=== PATIENT | male | born 1995 | race Hispanic/Latino ===

== ENCOUNTER 2023-07-17 23:00 | Emergency (ER) | payer SELFPAY ==
--- NOTE | ~2023-07-17 | XR_ITS ---
EXAMINATION: XR chest 2V DATE: 07/17/2023 23:34 INDICATION: Chest pressure. Shortness of breath. TECHNIQUE: Frontal and lateral views of the chest were obtained. COMPARISON: None. FINDINGS: There is no pneumonia, pleural effusion, or pneumothorax. The heart size is normal. IMPRESSION: 1. No acute cardiopulmonary disease. Reviewed, dictated and finalized at location A.
[2023-07-17 23:04] VITALS: BP 138/87; PULSE 93; RESP 15; TEMP 36.8; O2SAT 100
--- NOTE | 2023-07-17 23:07 | ECG_ITS ---
Measurements Intervals Gleason Rate: 84 P: 58 MN: 151 QRS: 18 QRSD: 101 T: 49 QT: 337 QTc: 401 Interpretive Statements SINUS RHYTHM NORMAL ECG NO PREVIOUS ECG AVAILABLE FOR COMPARISON Electronically Signed On 07-18-2023 6:33:29 CDT by Polo Mayer D.O.
[2023-07-17 23:21] VITALS: BP 134/94; PULSE 81; RESP 19; TEMP 36.4; O2SAT 99
[2023-07-17 23:22] VITALS: PULSE 84
[2023-07-17 23:27] VITALS: O2SAT 100
[2023-07-17 23:32] LABS: Basophils Absolute Auto 0.1 K/mm3 (0.0-0.1); Basophils Percent Auto 0.9 % (0.2-1.2); Eosinophils Absolute Auto 0.1 K/mm3 (0-0.3); Eosinophils Percent Auto 0.9 % (0-4.4); Hematocrit 45.5 % (42.0-52.0); Hemoglobin 16.2 g/dL (14.0-18.0); Immature Granulocyte Absolute 0.02 K/mm3 (0.00-0.031); Immature Granulocyte Percent A 0.3 % (0-0.5); Lymphocytes Absolute Auto 1.62 K/mm3 (0.9-3.2); Lymphocytes Percent Auto 24.7 % (18.3-44.2); Mean Corpuscular HGB Conc 35.6 g/dl (32-36); Mean Corpuscular Hemoglobin 32.2 pg (26-34); Mean Corpuscular Volume 90.5 fl (80-100); Mean Platelet Volume 10.3 fl (7.4-10.4); Monocytes Absolute Auto 0.6 K/mm3 (0.1-0.6); Monocytes Percent Auto 8.4 % (2.6-8.5); Neutrophils Absolute Auto 4.3 K/mm3 (1.3-6.7); Neutrophils Percent Auto 64.8 % (45.5-73.1); Platelet Count Result 232 k/mm3 (150-375); Red Blood Count 5.03 M/mm3 (4.6-6.20); Red Cell Distribution Width 12.1 % (11.5-14.5); White Blood Count 6.6 K/mm3 (4.5-10.0)
[2023-07-17 23:43] LABS: Prothrombin Time 13.5 Seconds (11.1-14.7)
[2023-07-17 23:44] LABS: Partial Thromboplastin Time 28.6 SECONDS (22.3-36.8)
[2023-07-17 23:49] LABS: Alanine Aminotransferase 23 U/L (6-50); Albumin Level 4.7 g/dL (3.5-5.1); Alkaline Phosphatase 125 U/L (38-126); Anion Gap 11 mmol/L (8-16); Aspartate Amino Transferase 34 U/L (17-59); Bilirubin,Total 1.1 mg/dL (0.2-1.3); Blood Urea Nitrogen 10 mg/dL (9-20); Calcium 8.8 mg/dL (8.4-10.2); Carbon Dioxide 26 mmol/L (22-30); Chloride 102 mmol/L (98-107); Estimated CRCL calculation 102 ml/min; Estimated Glomerular Filt Rate > 60; Glucose 108 mg/dL (65-110); Lipase 24 U/L (23-300); Sodium 139 mmol/L (137-145)
[2023-07-17] MEDS: ASPIRIN 81 MG CHEWABLE TABLET 324 MG PO (23:49)
[2023-07-18 00:03] LABS: Troponin I < 0.012 ng/mL (0.000-0.034)
[2023-07-18] MEDS: LORazepam INJ (*CRX) 2 MG/ML VIAL 1 MG IV PUSH (00:03)
--- NOTE | 2023-07-18 00:28 | ED.CHESTPAIN ---
HPI - Chest Pain General Chief Complaint: Chest Pain Stated Complaint: chest pressure, nausea Time Seen by Provider: 07/17/23 23:21 History of Present Illness HPI narrative: Patient presenting with chest pressure, started about 5 hours ago, he did admit that he had tried cocaine before the symptoms started, no nausea or vomiting, no shortness of breath. Related Data Allergies Allergy/AdvReac Type Severity Reaction Status Date / Time No Known Allergies Allergy Verified 07/17/23 23:22 Review of Systems Review of Systems: CONST: No fever. HEENT: No sore throat C/V: Chest pressure RESP: No cough GI: No nausea or vomiting : No dysuria. M/S: No joint pain. SKIN: No rash. NEURO: [No headache or focal numbness or weakness] PSYCH: Slightly anxious Exam Narrative: EXAMINATION OF ORGAN SYSTEMS/BODY AREAS: Constitutional: Vital signs per nursing GENERAL:[No acute distress, non-toxic appearing.] HEAD: Normal with no signs of head trauma. EYES: EOMI, conjunctiva normal ENT: Hearing grossly intact LUNGS: Nonlabored breathing. Clear to auscultation bilaterally HEART: [Regular rate and rhythm] ABD: [Soft], [nontender to palpation] EXT: Normal range of motion SKIN: [No rashes or lesions.] NEURO: [Alert and oriented x 3. No gross focal sensory or strength deficits.] PSYCH: Normal affect Course Vital Signs Vital signs: Vital Signs Temperature 98.2 F 07/17/23 23:04 Pulse Rate 93 07/17/23 23:04 Respiratory Rate 15 07/17/23 23:04 Blood Pressure 138/87 07/17/23 23:04 Pulse Oximetry 100 07/17/23 23:04 Oxygen Delivery Room Air 07/17/23 23:04 Temperature 98.3 F 07/18/23 00:39 Pulse Rate 72 07/18/23 00:39 Respiratory Rate 16 07/18/23 00:39 Blood Pressure 127/78 07/18/23 00:39 Pulse Oximetry 100 07/18/23 00:39 Oxygen Delivery Room Air 07/17/23 23:27 MDM - Chest Pain MDM Narrative Medical decision making narrative: ED COURSE AND MEDICAL DECISION MAKIN-year-old presenting with chest pain. EKG done in triage negative for acute ischemic changes. Cardiac workup is initiated. HEART score is 0 with no acute ischemic changes on EKG and negative troponin making ACS unlikely. Negative PERC making PE unlikely. Presentation not consistent with dissection or aneurysm without radiation of pain or pulse deficits. CXR negative for mediastinal widening. No abdominal pain or signs of sepsis that would be concerning for esophageal perforation or mediastinitis. No cardiomegaly or JVD to suggest pericardial effusion/tamponade. He is given aspirin and Ativan for cocaine induced chest pain. On repeat evaluation just prior to discharge, the patient is no acute distress. His symptoms have resolved completely. I had a long discussion with the patient and with shared decision making, [he] is comfortable with outpatient management. He really regrets trying cocaine and states will never happen again. [He] was given clear return instructions by myself in person as well as on discharge paperwork. Procedures: Pulse oximetry interpretation - not hypoxic. EKG interpretation. Review of medical records. Lab Data 07/17/23 23:24 07/17/23 23:24 Labs: Lab Results 07/17/23 Range/Units 23:24 WBC 6.6 (4.5-10.0) K/mm3 RBC 5.03 (4.6-6.20) M/mm3 Hgb 16.2 (14.0-18.0) g/dL Hct 45.5 (42.0-52.0) % MCV 90.5 (80-100) fl MCH 32.2 (26-34) pg MCHC 35.6 (32-36) g/dl RDW 12.1 (11.5-14.5) % Plt Count 232 (150-375) k/mm3 MPV 10.3 (7.4-10.4) fl Immature Gran % (Auto) 0.3 (0-0.5) % Neut % (Auto) 64.8 (45.5-73.1) % Lymph % (Auto) 24.7 (18.3-44.2) % Davison % (Auto) 8.4 (2.6-8.5) % Eos % (Auto) 0.9 (0-4.4) % Baso % (Auto) 0.9 (0.2-1.2) % Lymph # (Auto) 1.62 (0.9-3.2) K/mm3 Davison # (Auto) 0.6 (0.1-0.6) K/mm3 Eos # (Auto) 0.1 (0-0.3) K/mm3 Baso # (Auto) 0.1 (0.0-0.1) K/mm3 Abs Immat Gran (auto) 0.02 (0.00-0.031) K/mm3 A
[2023-07-18 00:39] VITALS: BP 127/78; PULSE 72; RESP 16; TEMP 36.8; O2SAT 100
== END 2023-07-18 00:41 | disposition home or self-care (01) ==
PROVIDERS: Emergency Provider Emergency Medicine
DX: R07.9 Chest pain, unspecified (principal)
CPT/HCPCS: 36415; 71046; 80053; 83690; 84484; 85025; 85610; 85730; 93005; 96374; 99284; A9270; J2060